=== PATIENT | male | born 1955 | race Caucasian/White ===

== ENCOUNTER 2019-10-07 03:05 | Emergency (ER) | payer BC, OTHER ==
[2019-10-07] MEDS ORDERED: Sodium Chloride 0.9% 10 ML Syringe FLUSH PRN (03:43)
[2019-10-07] MEDS ORDERED: Pantoprazole 40 MG Vial IVPUSH ONE (03:47)
--- NOTE | 2019-10-07 03:48 | EDM.PDOC ---
ED HPI GENERAL MEDICAL PROBLEM - General Chief Complaint: Abdominal Pain Stated Complaint: ABDOMINAL PAIN Time Seen by Provider: 10/07/19 03:44 Source of Information: Reports: Patient History Limitations: Reports: No Limitations - History of Present Illness INITIAL COMMENTS - FREE TEXT/NARRATIVE: Daryl @0200 with epigastric pain, described as an ache. Symptoms have improved. He took ASA 324mg [employer]. Denies N/V, chest pain, or SOB. No prior h/o CAD. Onset Date: 10/07/19 Onset Time: 02:00 Location: Reports: Abdomen Quality: Reports: Ache Severity: Mild - Related Data Allergies Allergy/AdvReac Type Severity Reaction Status Date / Time Pollens, Mold, Mildew Allergy Sinus Uncoded 10/07/19 03:41 Headache Home Meds: Home Meds Aspirin [Adult Low Dose Aspirin EC] 81 mg PO DAILY 11/13/15 [History] Clobetasol [Clobetasol 0.05%] 1 applic TOP DAILY 11/13/15 [History] Omeprazole 20 mg PO Q48H 11/13/15 [History] Enalapril [Vasotec] 10 mg PO DAILY 10/07/19 [History] Loratadine [Claritin] 10 mg PO DAILY 10/07/19 [History] Naproxen 250 mg PO BID PRN #20 tablet 10/07/19 [Rx] hydroCHLOROthiazide [Hydrochlorothiazide] 25 mg PO DAILY 10/07/19 [History] Past Medical History Cardiovascular History: Reports: Hypertension. Denies: CAD Dermatologic History: Reports: Eczema Other Dermatologic History: eczema R mojica - Past Surgical History Musculoskeletal Surgical History: Reports: Joint Replacement Social & Family History - Tobacco Use Smoking Status *Q: Never Smoker - Alcohol Use Alcohol Use History: Yes Alcohol Use Frequency: Rarely - Recreational Drug Use Recreational Drug Use: No ED ROS GENERAL - Review of Systems Review Of Systems: Comprehensive ROS is negative, except as noted in HPI. ED EXAM, GI/ABD - Physical Exam Exam: See Below Exam Limited By: No Limitations General Appearance: Alert, WD/WN, No Apparent Distress Throat/Mouth: No Airway Compromise Head: Atraumatic, Normocephalic Neck: Full Range of Motion Respiratory/Chest: No Respiratory Distress, Lungs Clear, Normal Breath Sounds Cardiovascular: Regular Rate, Rhythm, No Murmur GI/Abdominal Exam: Normal Bowel Sounds, Soft, Non-Tender, No Distention Extremities: Normal Range of Motion Neurological: Alert, Normal Cognition Psychiatric: Normal Affect, Normal Mood Skin Exam: Warm, Dry, Intact EKG INTERPRETATION EKG Date: 10/07/19 Time: 03:16 Rhythm: NSR Rate (Beats/Min): 60 [place]: Normal P-Wave: Present QRS: Normal ST-T: Normal QT: Normal Course - Vital Signs Last Recorded V/S: Last Vital Signs Temp 36.6 C 10/07/19 03:15 Pulse 58 L 10/07/19 07:00 Resp 16 10/07/19 07:00 BP 114/60 10/07/19 07:00 Pulse Ox 97 10/07/19 07:00 - Orders/Labs/Meds Orders: Active Orders 24 hr Category Date Time Status EKG Documentation Completion [RC] ASDIRECTED Care 10/07/19 03:43 Active Abdomen Pelvis w Cont [CT] Stat Exams 10/07/19 04:51 Taken Sodium Chloride 0.9% [Saline Flush] Med 10/07/19 03:43 Active 10 ml FLUSH ASDIRECTED PRN Saline Lock Insert [OM.PC] Routine Oth 10/07/19 03:43 Ordered EKG 12 Lead [EK] Stat Ther 10/07/19 03:43 Ordered Medication Orders Sodium Chloride (Saline Flush) 10 ml FLUSH ASDIRECTED PRN PRN Reason: Keep Vein Open Last Admin: 10/07/19 04:38 Dose: 10 ml Documented by: WILLIAM Labs: Laboratory Tests 10/07/19 10/07/19 10/07/19 Range/Units 04:05 04:05 04:05 WBC 5.4 (4.5-12.0) X10-3/uL RBC 4.32 (4.30-5.75) x10(6)uL Hgb 13.6 (13.5-17.8) g/dL Hct 40.5 (30.0-51.3) % MCV 93.9 (80-96) fL MCH 31.5 (27.7-33.6) pg MCHC 33.5 (32.2-35.4) g/dL RDW 12.7 (11.5-15.5) % Plt Count 232 (125-369) X10(3)uL MPV 7.6 (7.4-10.4) fL Neut % (Auto) 67.7 (46-82) % Lymph % (Auto) 21.3 (13-37) % [place] % (Auto) 6.5 (4-12) % Eos % (Auto) 4 (1.0-5.0) % Baso % (Auto) 1 (0-2) % Neut # (Auto) 3.6 (1.6-8.3) # Lymph # (Auto) 1.2 (0.6-5.0) # [place] # (Auto) 0.4 (0.0-1.3) # Eos # (Auto) 0.2 (0.0-0.8) # Baso # (Auto) 0.0 (0.0-0.2) # PT 10.3 (9.0-11.1) sec INR 0.95 L (1.00-1.24) APTT 25.5 (24.4-33.2) SECONDS Sodium 141 (135-145) mmol/L Potassium 3.2 L (3.5-5.3) mmol/L Chloride 104 (100-110) mmol/L Carbon Dioxide 29 (21-32) mmol/L BUN 21 H (7-18) mg/dL Creatinine 1.3 (0.70-1.30) mg/dL Est Cr Clr Drug Dosing 55.54 mL/min Estimated GFR (MDRD) 56 L (>60) BUN/Creatinine Ratio 16.2 (9-20) Glucose 165 H (80-116) mg/dL Calcium 8.7 (8.6-10.2) mg/dL Total Bilirubin 0.4 (0.1-1.3) mg/dL AST 19 (5-25) IU/L ALT 34 (12-36) U/L Alkaline Phosphatase 77 (56-112) IU/L Troponin I (4.0-60.3) pg/mL Total Protein 6.6 (6.0-8.0) g/dL Albumin 3.6 (3.2-4.6) g/dL Globulin 3.0 g/dL Albumin/Globulin Ratio 1.2 Lipase (73-393) U/L Urine Color (YELLOW) Urine Appearance (CLEAR) Urine pH (5.0-6.5) Ur Specific [place] (1.010-1.025) Urine Protein (NEGATIVE) mg/dL Urine Glucose (UA) (NORMAL) mg/dL Urine Ketones (NEGATIVE) mg/dL Urine Occult Blood (NEGATIVE) Urine Nitrite (NEGATIVE) Urine Bilirubin (NEGATIVE) Urine Urobilinogen (NEGATIVE) mg/dL Ur Leukocyte Esterase (NEGATIVE) Urine RBC (0-5) Urine WBC (0-5) Ur Squamous Epith Cells (NS,R,O) Urine Bacteria (NS) 10/07/19 10/07/19 10/07/19 Range/Units 04:05 04:10 07:10 WBC (4.5-12.0) X10-3/uL RBC (4.30-5.75) x10(6)uL Hgb (13.5-17.8) g/dL Hct (30.0-51.3) % MCV (80-96) fL MCH (27.7-33.6) pg MCHC (32.2-35.4) g/dL RDW (11.5-15.5) % Plt Count (125-369) X10(3)uL MPV (7.4-10.4) fL Neut % (Auto) (46-82) % Lymph % (Auto) (13-37) % [place] % (Auto) (4-12) % Eos % (Auto) (1.0-5.0) % Baso % (Auto) (0-2) % Neut # (Auto) (1.6-8.3) # Lymph # (Auto) (0.6-5.0) # [place] # (Auto) (0.0-1.3) # Eos # (Auto) (0.0-0.8) # Baso # (Auto) (0.0-0.2) # PT (9.0-11.1) sec INR (1.00-1.24) APTT (24.4-33.2) SECONDS Sodium (135-145) mmol/L Potassium (3.5-5.3) mmol/L Chloride (100-110) mmol/L Carbon Dioxide (21-32) mmol/L BUN (7-18) mg/dL Creatinine (0.70-1.30) mg/dL Est Cr Clr Drug Dosing mL/min Estimated GFR (MDRD) (>60) BUN/Creatinine Ratio (9-20) Glucose (80-116) mg/dL Calcium (8.6-10.2) mg/dL Total Bilirubin (0.1-1.3) mg/dL AST (5-25) IU/L ALT (12-36) U/L Alkaline Phosphatase (56-112) IU/L Troponin I 16.1 16.3 (4.0-60.3) pg/mL Total Protein (6.0-8.0) g/dL Albumin (3.2-4.6) g/dL Globulin g/dL Albumin/Globulin Ratio Lipase 208 (73-393) U/L Urine Color Yellow (YELLOW) Urine Appearance Clear (CLEAR) Urine pH 5.0 (5.0-6.5) Ur Specific [place] 1.025 (1.010-1.025) Urine Protein Negative (NEGATIVE) mg/dL Urine Glucose (UA) Normal (NORMAL) mg/dL Urine Ketones Negative (NEGATIVE) mg/dL Urine Occult Blood Negative (NEGATIVE) Urine Nitrite Negative (NEGATIVE) Urine Bilirubin Negative (NEGATIVE) Urine Urobilinogen Normal (NEGATIVE) mg/dL Ur Leukocyte Esterase Negative (NEGATIVE) Urine RBC 0-5 (0-5) Urine WBC 0-5 (0-5) Ur Squamous Epith Cells Occasional (NS,R,O) Urine Bacteria Rare H (NS) Meds: Medications Generic Name Dose Route Start Last Admin Trade Name Freq PRN Reason Stop Dose Admin Sodium Chloride 10 ml 10/07/19 03:43 10/07/19 04:38 Saline Flush FLUSH 10 ml ASDIRECTED PRN Administration Keep Vein Open Discontinued Medications Generic Name Dose Route Start Last Admin Trade Name Freq PRN Reason Stop Dose Admin Iopamidol 100 ml 10/07/19 04:59 10/07/19 05:19 Isovue-370 (76%) IV 10/07/19 05:00 100 ml . DIRECTED ONE Administration Pantoprazole Sodium 40 mg 10/07/19 03:47 10/07/19 04:34 Protonix Iv IVPUSH 10/07/19 03:48 40 mg ONETIME ONE Administration - Radiology Interpretation Free Text/Narrative:: Study: CT Abdomen/Pelvis -10/07/2019 5:28:23 AM Ordering Physician: ROSARIO Final Report: Indication: Epigastric pain Technique: Contrast enhanced axial CT imaging through the abdomen and pelvis. 100 mL Isovue 370 contrast agent was administered intravenously. Sagittal and coronal reconstructions are provided. Comparison: CT abdomen pelvis without contrast 11/13/2015 Findings: There is no significant abnormality of the liver, spleen, pancreas, adrenal glands, and kidneys. There is a small amount of hyperdense sludge is noted in the gallbladder. There is a small left lower pole renal cortical cyst. The portal vein is patent. There is normal caliber of the abdominal aorta. There is mild haziness in the central mesentery with associated prominent lymph nodes, suggesting mesenteric panniculitis. The stomach and duodenum are unremarkable. There are no abnormally dilated small bowel loops. The appendix is noninflamed. There is mild diverticulosis of the distal descending and proximal sigmoid colon. There is no colonic wall thickening. There is no free intraperitoneal fluid or air. Degenerative changes are noted in the lumbar spine. The included lung bases are clear. Impression: 1. Mild haziness of the central mesentery with associated prominent mesenteric lymph nodes suggesting mesenteric panniculitis. Correlate clinically. 2. Colonic diverticulosis without evidence of acute diverticulitis. 3. Cholelithiasis. Please note that all CT scans at this facility use dose modulation, iterative reconstruction, and/or weight-based dosing when appropriate to reduce radiation dose to as low as reasonably achievable. Dictated by Ankita Aguilar MD @ Oct 07 2019 5:39AM (Electronic Signature) - Re-Assessments/Exams Free Text/Narrative Re-Assessment/Exam: 10/07/19 07:51 No improvement of symptoms after Protonix 40mg IV Departure - Departure Time of Disposition: 07:51 Disposition: Home, Self-Care 01 Condition: Good Clinical Impression: Mesenteric panniculitis, Hypokalemia Cholelithiasis Qualifiers: Cholelithiasis location: gallbladder Cholecystitis presence: without cholecystitis Biliary obstruction: without biliary obstruction Qualified Code(s): K80.20 - Calculus of gallbladder without cholecystitis without obstruction - Discharge Information *PRESCRIPTION DRUG MONITORING PROGRAM REVIEWED*: No *COPY OF PRESCRIPTION DRUG MONITORING REPORT IN PATIENT SATNAM: Not Applicable Prescriptions: Naproxen 250 mg PO BID PRN #20 tablet PRN Reason: Pain Instructions: Cholelithiasis, [place], Hypokalemia, Gallbladder Eating Plan Referrals: Yonis Tinoco MD [Primary Care Provider] - 2 Days Forms: ED Department Discharge Additional Instructions: Fill the prescription for Naproxen and take as directed. Take Omeprazole daily instead of every other day. Eat a low fat diet. Increase intake of potassium containing foods. Follow up with your primary physician in 2 days. Return to the ER if symptoms worsen. Sepsis Event Note (ED) - Focused Exam Vital Signs: Vital Signs Temp Pulse Resp BP Pulse Ox 10/07/19 07:00 58 L 16 114/60 97 10/07/19 06:30 63 16 109/65 97 10/07/19 06:00 62 18 109/60 98 10/07/19 05:30 64 16 107/59 L 99 10/07/19 05:15 65 16 116/59 L 100 10/07/19 04:30 61 18 109/62 98 10/07/19 04:00 62 18 121/71 98 10/07/19 03:30 64 18 118/73 99 10/07/19 03:15 36.6 C 63 18 118/63 99 - My Orders Last 24 Hours: My Active Orders 10/07/19 03:43 EKG Documentation Completion [RC] ASDIRECTED Sodium Chloride 0.9% [Saline Flush] 10 ml FLUSH ASDIRECTED PRN Saline Lock Insert [OM.PC] Routine EKG 12 Lead [EK] Stat 10/07/19 04:51 Abdomen Pelvis w Cont [CT] Stat - Assessment/Plan Last 24 Hours: My Active Orders 10/07/19 03:43 EKG Documentation Completion [RC] ASDIRECTED Sodium Chloride 0.9% [Saline Flush] 10 ml FLUSH ASDIRECTED PRN Saline Lock Insert [OM.PC] Routine EKG 12 Lead [EK] Stat 10/07/19 04:51 Abdomen Pelvis w Cont [CT] Stat
[2019-10-07] MEDS ORDERED: Iopamidol 755 Mg/ML 100 ML Bottle IV ONE (04:59)
[2019-10-07 19:14] VITALS: BP 112/60; PULSE 62
== END 2019-10-07 08:04 | disposition home or self-care (01) ==
LOC: FB.ED 03:05
DX: K65.4 Sclerosing mesenteritis (principal); K80.20 Calculus of gallbladder without cholecystitis without obstruction; I10 Essential (primary) hypertension; Z91.048 Other nonmedicinal substance allergy status; Z79.82 Long term (current) use of aspirin; Z79.899 Other long term (current) drug therapy
CPT/HCPCS: 36415; 74177; 80053; 81001; 83690; 84484; 85025; 85610; 85730; 93005; 96374; 99284; C9113; Q9967

== ENCOUNTER 2020-06-15 07:21 | Day surgery (SDC) | payer BC ==
[~2020-06-15 07:21] MED LIST: Lactated Ringers 1,000 ML IV SCH; Sodium Chloride 0.9% 10 ML Syringe FLUSH PRN
[2020-06-15] MEDS ORDERED: Rocuronium 50 MG/5 ML Vial IV ONE (07:22)
[2020-06-15] MEDS ORDERED: Sugammadex Sodium 200 MG/2 ML VIAL IV ONE (07:22)
[2020-06-15] MEDS ORDERED: Succinylcholine 200 MG/10 ML MDV IV ONE (07:22)
[2020-06-15] MEDS ORDERED: fentaNYL 100 MCG/2 ML SDV IV ONE (07:22)
[2020-06-15] MEDS ORDERED: Propofol 200 MG/20 ML SDV IV ONE (07:22)
[2020-06-15] MEDS ORDERED: Lactated Ringers 1,000 ML IV ONE (07:22)
[2020-06-15] MEDS ORDERED: Midazolam 1 MG/ML 2 ML SDV IV ONE (07:22)
[2020-06-15] MEDS ORDERED: Ondansetron 4 MG/2 ML SDV IVPUSH ONE (07:22)
[2020-06-15] MEDS ORDERED: Lidocaine 1% with EPINEPHrine 1:100,000 20 ML MDV INJECT ONE (09:12)
[2020-06-15] MEDS ORDERED: Bupivacaine 0.5% 30 ML SDV INJECT ONE (09:12)
[2020-06-15 10:41] VITALS: BP 122/74; PULSE 53
--- NOTE | 2020-06-16 10:31 | OR ---
DATE OF OPERATION: 06/15/2020 SURGEON: Garth Jones MD PREOPERATIVE DIAGNOSIS: Cholelithiasis with chronic cholecystitis. POSTOPERATIVE DIAGNOSIS: Cholelithiasis with chronic cholecystitis. PROCEDURE PERFORMED: Laparoscopic cholecystectomy. INDICATIONS FOR PROCEDURE: This is a 65-year-old white male who had a flare up of some right upper quadrant abdominal pain several weeks ago. Subsequent ultrasound revealed a thickened gallbladder wall as well as two free-floating stones. The patient was offered and accepted a laparoscopic cholecystectomy. DESCRIPTION OF OPERATION: After an excellent general anesthetic was administered via endotracheal tube, the patient was prepped and draped in usual sterile manner. An area just above the patient's umbilicus was infiltrated with a 1:1 mixture of 1% lidocaine with epinephrine and 0.5% bupivacaine. A small 2 cm vertical midline incision was made. Blunt dissection was carried out exposing the midline fascia. Two stay sutures were then placed on either side of the midline fascia and the abdominal wall was elevated, incised, and the abdominal cavity was entered. After digital inspection to ensure no adhesions, a 10.5 mm Ankush trocar was inserted, the balloon was inflated, and the patient's abdomen was insufflated to 15 mmHg using carbon dioxide. The patient was placed in reverse Trendelenburg position with an airplane to the left, and under direct visualization, three 5 mm ports were placed, one in the midline epigastrium and two below the right costal margin at the proximal level of midclavicular and anterior axillary line. A total for all our infiltration with the local was 10 mL. There were some adhesions of the omentum, which was gently taken down using careful blunt dissection. There were some adhesions against the liver, which was taken down with careful sharp dissection. This allowed us to grasp the dome of the gallbladder, retract it cephaladly, and I also grabbed the infundibulum and then we were able to dissect free the cystic duct and the cystic artery. This was done with a combination of blunt dissection with a [place] dissector, the right angle, and a [place] dissector as well. After confirming the critical view and identifying the cystic duct as well as the single blood vessel going up into the gallbladder, two clips were placed proximally on the cystic duct and one distally and two were placed proximally on the cystic artery and one distally as well. These two structures were then transected. The gallbladder was then dissected free from the gallbladder fossa using L-hook cautery dissection and there was noted to be a degree of some edema, thickening of the gallbladder wall. Specimen was then passed into a specimen bag and delivered out through the periumbilical port. The gallbladder fossa was irrigated, some slight slight oozing points were controlled with electrocautery. The area was then completely irrigated until clear. The patient was flattened out and level and the gutter along the right lobe of the liver was also irrigated until clear as well. The trocars were then removed under direct visualization and pneumoperitoneum was released. The periumbilical incision was closed with a [id number] 0 Vicryl and the two stay sutures were tied to each other as well. The skin was closed with janet. Needle, sponge, and instrument counts were reported as correct. The patient was taken to recovery room in good condition having tolerated the procedure well. /[id number] /MODL
== END 2020-06-15 11:30 | disposition home or self-care (01) ==
LOC: FB.SDS 07:21
PROVIDERS: ATTEND Surgery
DX: K80.12 Calculus of gallbladder with acute and chronic cholecystitis without obstruction (principal); G47.33 Obstructive sleep apnea (adult) (pediatric); I10 Essential (primary) hypertension; E66.9 Obesity, unspecified; Z98.890 Other specified postprocedural states; Z87.891 Personal history of nicotine dependence; Z86.16 Personal history of COVID-19; Z79.899 Other long term (current) drug therapy; Z79.82 Long term (current) use of aspirin
CPT/HCPCS: 00790-QZ; 88304; 94150; J0330; J0694; J2250; J2405; J2704; J3010; J3490; J7120

== ENCOUNTER 2022-08-01 06:15 | Day surgery (SDC) | payer BC ==
[2022-08-01] MEDS ORDERED: Lidocaine 2% 5 ML SDV INJECT ONE (06:16)
[2022-08-01] MEDS ORDERED: Propofol 200 MG/20 ML SDV IV ONE (06:16)
[2022-08-01] MEDS ORDERED: Simethicone Drops 40 MG/0.6 ML 30 ML Bottle ONE (07:31)
[2022-08-01 11:21] VITALS: BP 156/97; PULSE 53
== END 2022-08-01 08:55 | disposition home or self-care (01) ==
LOC: FB.SDS 06:15
PROVIDERS: ATTEND Surgery
DX: Z12.11 Encounter for screening for malignant neoplasm of colon (principal); D12.6 Benign neoplasm of colon, unspecified; K57.30 Diverticulosis of large intestine without perforation or abscess without bleeding; K21.9 Gastro-esophageal reflux disease without esophagitis; I10 Essential (primary) hypertension; G47.33 Obstructive sleep apnea (adult) (pediatric); Z79.899 Other long term (current) drug therapy; Z90.49 Acquired absence of other specified parts of digestive tract; Z87.891 Personal history of nicotine dependence
CPT/HCPCS: 00812; 45380; 45385; 88305; A9270; J2704; J7120